=== PATIENT | female | born 1940 | race Caucasian/White ===

== ENCOUNTER → 2020-08-16 12:47 | Outpatient (CLI) | payer MEDICARE, SELFPAY ==
--- NOTE | 2020-08-16 13:03 | DI.CT.S_ITS ---
PROCEDURE: CT LUMBAR SPINE WO CON INDICATIONS: Radiculopathy, lumbar region TECHNIQUE: Noncontrast 3 mm thick sections acquired from the T12 level to the sacrum. Sagittal and coronal reformats were constructed. For radiation dose reduction, the following was used: automated exposure control. COMPARISON: None. FINDINGS: Image quality: Excellent. Bones: There is normal bony alignment. No acute vertebral body compression fractures. No suspicious lytic or blastic bony lesions. Central spinal caliber is of normal overall caliber. No pars defects. L1-L2: Mild degenerative disc height reduction, slight posterior disc bulge. No definite spinal or foraminal stenosis. L2-L3: Mild degenerative disc height reduction, no definite posterior disc bulging. Minimal facet degeneration, no definite spinal or foraminal stenosis. L3-L4: Minimal degenerative disc height reduction. There is left greater than right posterior disc bulging, in addition to mild facet osteoarthritis. This results in asymmetric foraminal stenosis, moderately severe on the left and [id number] on the right. The foraminal stenosis on the left is predominantly due to osseous hypertrophy. L4-L5: Mild degenerative disc height reduction. Moderate facet osteoarthritis that is symmetric bilaterally. This results in bilateral moderate foraminal stenosis and symmetric mild ligamentum flavum hypertrophy. Mild concentric spinal stenosis is present as a result. L5-S1: Mild degenerative disc height reduction, mild posterior disc bulging. Mild facet osteoarthritis, with symmetric mild foraminal stenosis. Soft tissues: No retroperitoneal masses or hematomas. Visualized aorta is normal in caliber. IMPRESSION: Trauma is not found. No subluxation is present. There is bivn-vu-yejkptum degenerative facet osteoarthritis and mild degenerative disc disease overall. Both asymmetric and symmetric foraminal stenosis is present as discussed in detail by level in the body of the report above. Mild concentric spinal stenosis is found also, without suspected disc herniation. Dictated by: Miguel Ángel Deleon M.D. on 08/16/2020 at 14:20 Approved by: Miguel Ángel Deleon M.D. on 08/16/2020 at 14:27
== END ==
PROVIDERS: Referring Provider Orthopaedic Surgery; Visit Provider Orthopaedic Surgery
DX: M51.16 Intervertebral disc disorders with radiculopathy, lumbar region (principal); M51.17 Intervertebral disc disorders with radiculopathy, lumbosacral region; M47.26 Other spondylosis with radiculopathy, lumbar region; M47.27 Other spondylosis with radiculopathy, lumbosacral region; M48.061 Spinal stenosis, lumbar region without neurogenic claudication; M48.07 Spinal stenosis, lumbosacral region
CPT/HCPCS: 72131

== ENCOUNTER → 2021-11-06 10:32 | Outpatient (CLI) | payer MEDICARE, SELFPAY | PROVIDERS: PCP Family Medicine; Referring Provider Radiology Radiation Oncology; Visit Provider Family Medicine | DX: L59.8 Other specified disorders of the skin and subcutaneous tissue related to radiation (principal); S81.802A Unspecified open wound, left lower leg, initial encounter; R60.0 Localized edema; Z85.828 Personal history of other malignant neoplasm of skin; Z92.3 Personal history of irradiation; Z74.09 Other reduced mobility | CPT/HCPCS: 97597; 99204; 99213 ==

== ENCOUNTER → 2021-11-13 09:13 | Outpatient (CLI) | payer MEDICARE, SELFPAY | PROVIDERS: PCP Family Medicine; Referring Provider Family Medicine; Visit Provider Family Medicine | DX: L59.8 Other specified disorders of the skin and subcutaneous tissue related to radiation (principal); S81.802A Unspecified open wound, left lower leg, initial encounter; R60.0 Localized edema; Z85.828 Personal history of other malignant neoplasm of skin; Z92.3 Personal history of irradiation; Z74.09 Other reduced mobility | CPT/HCPCS: 11042; 93923 ==

== ENCOUNTER → 2021-11-20 11:59 | Outpatient (CLI) | payer MEDICARE, SELFPAY | PROVIDERS: PCP Family Medicine; Referring Provider Dermatology MOHS-Micrographic Surgery; Visit Provider Family Medicine | DX: Z09 Encounter for follow-up examination after completed treatment for conditions other than malignant neoplasm (principal); Z92.3 Personal history of irradiation; Z87.2 Personal history of diseases of the skin and subcutaneous tissue | CPT/HCPCS: 99212; 99213 ==

== ENCOUNTER → 2021-12-25 11:52 | Outpatient (CLI) | payer MEDICARE, SELFPAY | PROVIDERS: PCP Family Medicine; Referring Provider Family Medicine; Visit Provider Family Medicine | DX: L59.8 Other specified disorders of the skin and subcutaneous tissue related to radiation (principal); I87.2 Venous insufficiency (chronic) (peripheral); L97.822 Non-pressure chronic ulcer of other part of left lower leg with fat layer exposed; L08.9 Local infection of the skin and subcutaneous tissue, unspecified; M79.662 Pain in left lower leg; R60.0 Localized edema; Z74.09 Other reduced mobility; Z85.828 Personal history of other malignant neoplasm of skin; Z92.3 Personal history of irradiation | CPT/HCPCS: 11042; 87070; 87075; 87077; 87186; 87205; 99213 ==

== ENCOUNTER → 2022-01-08 10:26 | Outpatient (CLI) | payer MEDICARE, SELFPAY | PROVIDERS: PCP Family Medicine; Referring Provider Family Medicine; Visit Provider Family Medicine | DX: L59.8 Other specified disorders of the skin and subcutaneous tissue related to radiation (principal); L97.822 Non-pressure chronic ulcer of other part of left lower leg with fat layer exposed; L08.89 Other specified local infections of the skin and subcutaneous tissue; B96.89 Other specified bacterial agents as the cause of diseases classified elsewhere; R60.0 Localized edema; R26.89 Other abnormalities of gait and mobility | CPT/HCPCS: 11042; 99214 ==

== ENCOUNTER → 2022-01-15 08:49 | Outpatient (CLI) | payer MEDICARE, SELFPAY | PROVIDERS: PCP Family Medicine; Referring Provider Family Medicine; Visit Provider Family Medicine | DX: I87.2 Venous insufficiency (chronic) (peripheral) (principal); L97.822 Non-pressure chronic ulcer of other part of left lower leg with fat layer exposed; L59.8 Other specified disorders of the skin and subcutaneous tissue related to radiation; L08.9 Local infection of the skin and subcutaneous tissue, unspecified; R60.0 Localized edema; Z74.09 Other reduced mobility; Z88.8 Allergy status to other drugs, medicaments and biological substances; Z85.828 Personal history of other malignant neoplasm of skin; Z92.3 Personal history of irradiation | CPT/HCPCS: 11042; 87070; 87075; 87205; 99213 ==

== ENCOUNTER → 2022-01-22 10:44 | Outpatient (CLI) | payer MEDICARE, SELFPAY | PROVIDERS: PCP Family Medicine; Referring Provider Family Medicine; Visit Provider Family Medicine | DX: I87.2 Venous insufficiency (chronic) (peripheral) (principal); L97.822 Non-pressure chronic ulcer of other part of left lower leg with fat layer exposed; R60.0 Localized edema | CPT/HCPCS: 99213 ==

== ENCOUNTER → 2022-02-06 08:28 | Outpatient (CLI) | payer MEDICARE, SELFPAY | PROVIDERS: PCP Family Medicine; Referring Provider Family Medicine; Visit Provider Family Medicine | DX: I87.2 Venous insufficiency (chronic) (peripheral) (principal); L97.822 Non-pressure chronic ulcer of other part of left lower leg with fat layer exposed; L59.8 Other specified disorders of the skin and subcutaneous tissue related to radiation; R60.0 Localized edema; M79.662 Pain in left lower leg; Z74.09 Other reduced mobility; Z92.3 Personal history of irradiation | CPT/HCPCS: 11042; 99213 ==

== ENCOUNTER → 2022-02-26 09:06 | Outpatient (CLI) | payer MEDICARE, SELFPAY | PROVIDERS: PCP Family Medicine; Referring Provider Family Medicine; Visit Provider Family Medicine | DX: I87.2 Venous insufficiency (chronic) (peripheral) (principal); L59.8 Other specified disorders of the skin and subcutaneous tissue related to radiation; L97.822 Non-pressure chronic ulcer of other part of left lower leg with fat layer exposed; M79.605 Pain in left leg; R60.0 Localized edema; L08.9 Local infection of the skin and subcutaneous tissue, unspecified; Z74.09 Other reduced mobility | CPT/HCPCS: 11042; 87070; 87075; 87077; 87147; 87205; 99213 ==

== ENCOUNTER → 2022-03-19 08:43 | Outpatient (CLI) | payer MEDICARE, SELFPAY | PROVIDERS: PCP Family Medicine; Referring Provider Family Medicine; Visit Provider Family Medicine | DX: I87.2 Venous insufficiency (chronic) (peripheral) (principal); L97.822 Non-pressure chronic ulcer of other part of left lower leg with fat layer exposed; L59.8 Other specified disorders of the skin and subcutaneous tissue related to radiation; B95.7 Other staphylococcus as the cause of diseases classified elsewhere; R60.0 Localized edema; L53.9 Erythematous condition, unspecified | CPT/HCPCS: 97597; 99212; 99214 ==

== ENCOUNTER → 2022-04-17 08:38 | Outpatient (CLI) | payer MEDICARE, SELFPAY | PROVIDERS: PCP Family Medicine; Referring Provider Family Medicine; Visit Provider Family Medicine | DX: Z01.818 Encounter for other preprocedural examination (principal); L59.8 Other specified disorders of the skin and subcutaneous tissue related to radiation; L97.822 Non-pressure chronic ulcer of other part of left lower leg with fat layer exposed; I10 Essential (primary) hypertension; M79.662 Pain in left lower leg | CPT/HCPCS: 11042; 71046; 99214 ==

== ENCOUNTER → 2022-04-17 09:52 | Outpatient (CLI) | payer MEDICARE, SELFPAY ==
--- NOTE | 2022-04-17 09:54 | DI.RAD.S_ITS ---
PROCEDURE: XR CHEST 2V INDICATIONS: evaluate prior to starting HBO TECHNIQUE: 2 views of the chest were acquired. COMPARISON: None. FINDINGS: Surgical changes and devices: None. Lungs and pleura: Lungs are clear. No pleural effusions or pneumothorax. Mediastinum: Mediastinal contours are normal. Heart size is normal. Bones and chest wall: No suspicious bony abnormalities. Soft tissues appear unremarkable. IMPRESSION: No acute cardiopulmonary disease. Dictated by: Alvino Mauro M.D. on 04/17/2022 at 16:52 Approved by: Alvino Mauro M.D. on 04/17/2022 at 16:52
== END ==
PROVIDERS: PCP Family Medicine; Referring Provider Family Medicine; Visit Provider Family Medicine
DX: Z01.818 Encounter for other preprocedural examination (principal)
CPT/HCPCS: 71046

== ENCOUNTER → 2022-05-17 08:59 | Outpatient (CLI) | payer MEDICARE, SELFPAY | PROVIDERS: PCP Family Medicine; Referring Provider Family Medicine; Visit Provider Family Medicine | DX: L59.8 Other specified disorders of the skin and subcutaneous tissue related to radiation (principal); L08.9 Local infection of the skin and subcutaneous tissue, unspecified; S81.802A Unspecified open wound, left lower leg, initial encounter | CPT/HCPCS: 11042; 87070; 87075; 87077; 87186; 87205; 99183; 99213; G0277 ==

== ENCOUNTER → 2022-05-18 09:55 | Outpatient (CLI) | payer MEDICARE, SELFPAY | PROVIDERS: PCP Family Medicine; Referring Provider Family Medicine; Visit Provider Nurse Practitioner Family | DX: L59.8 Other specified disorders of the skin and subcutaneous tissue related to radiation (principal); L97.822 Non-pressure chronic ulcer of other part of left lower leg with fat layer exposed; L08.9 Local infection of the skin and subcutaneous tissue, unspecified | CPT/HCPCS: 99183; G0277 ==

== ENCOUNTER → 2022-05-21 09:32 | Outpatient (CLI) | payer MEDICARE, SELFPAY | PROVIDERS: PCP Family Medicine; Referring Provider Family Medicine; Visit Provider Family Medicine | DX: L59.8 Other specified disorders of the skin and subcutaneous tissue related to radiation (principal); L97.822 Non-pressure chronic ulcer of other part of left lower leg with fat layer exposed; L08.9 Local infection of the skin and subcutaneous tissue, unspecified | CPT/HCPCS: 99183; G0277 ==

== ENCOUNTER → 2022-05-22 09:57 | Outpatient (CLI) | payer MEDICARE, SELFPAY | PROVIDERS: PCP Family Medicine; Referring Provider Family Medicine; Visit Provider Family Medicine | DX: L59.8 Other specified disorders of the skin and subcutaneous tissue related to radiation (principal); L97.822 Non-pressure chronic ulcer of other part of left lower leg with fat layer exposed; L08.9 Local infection of the skin and subcutaneous tissue, unspecified | CPT/HCPCS: 99183; G0277 ==

== ENCOUNTER → 2022-05-23 09:01 | Outpatient (CLI) | payer MEDICARE, SELFPAY | PROVIDERS: PCP Family Medicine; Referring Provider Family Medicine; Visit Provider Family Medicine | DX: L59.8 Other specified disorders of the skin and subcutaneous tissue related to radiation (principal); L97.822 Non-pressure chronic ulcer of other part of left lower leg with fat layer exposed; L08.9 Local infection of the skin and subcutaneous tissue, unspecified | CPT/HCPCS: 99183; G0277 ==

== ENCOUNTER → 2022-05-24 09:41 | Outpatient (CLI) | payer MEDICARE, SELFPAY | PROVIDERS: PCP Family Medicine; Referring Provider Family Medicine; Visit Provider Family Medicine | DX: L59.8 Other specified disorders of the skin and subcutaneous tissue related to radiation (principal); L97.822 Non-pressure chronic ulcer of other part of left lower leg with fat layer exposed; L08.9 Local infection of the skin and subcutaneous tissue, unspecified | CPT/HCPCS: 99183; G0277 ==

== ENCOUNTER → 2022-05-25 09:14 | Outpatient (CLI) | payer MEDICARE, SELFPAY | PROVIDERS: PCP Family Medicine; Referring Provider Family Medicine; Visit Provider Nurse Practitioner Family | DX: L59.8 Other specified disorders of the skin and subcutaneous tissue related to radiation (principal); L97.822 Non-pressure chronic ulcer of other part of left lower leg with fat layer exposed; L08.9 Local infection of the skin and subcutaneous tissue, unspecified | CPT/HCPCS: 99183; G0277 ==

== ENCOUNTER → 2022-05-28 09:06 | Outpatient (CLI) | payer MEDICARE, SELFPAY | PROVIDERS: PCP Family Medicine; Referring Provider Family Medicine; Visit Provider Family Medicine | DX: L59.8 Other specified disorders of the skin and subcutaneous tissue related to radiation (principal); L97.822 Non-pressure chronic ulcer of other part of left lower leg with fat layer exposed; L08.9 Local infection of the skin and subcutaneous tissue, unspecified | CPT/HCPCS: 99183; G0277 ==

== ENCOUNTER → 2022-05-29 08:59 | Outpatient (CLI) | payer MEDICARE, SELFPAY | PROVIDERS: PCP Family Medicine; Referring Provider Family Medicine; Visit Provider Family Medicine | DX: L59.8 Other specified disorders of the skin and subcutaneous tissue related to radiation (principal); L97.822 Non-pressure chronic ulcer of other part of left lower leg with fat layer exposed; L08.9 Local infection of the skin and subcutaneous tissue, unspecified | CPT/HCPCS: 99183; G0277 ==

== ENCOUNTER → 2022-05-30 09:49 | Outpatient (CLI) | payer MEDICARE, SELFPAY | PROVIDERS: PCP Family Medicine; Referring Provider Family Medicine; Visit Provider Family Medicine | DX: L59.8 Other specified disorders of the skin and subcutaneous tissue related to radiation (principal); L97.822 Non-pressure chronic ulcer of other part of left lower leg with fat layer exposed; L08.9 Local infection of the skin and subcutaneous tissue, unspecified; B95.7 Other staphylococcus as the cause of diseases classified elsewhere | CPT/HCPCS: 11042; 99183; 99213; G0277 ==

== ENCOUNTER → 2022-05-31 09:05 | Outpatient (CLI) | payer MEDICARE, SELFPAY | PROVIDERS: PCP Family Medicine; Referring Provider Radiology Radiation Oncology; Visit Provider Family Medicine | DX: L59.8 Other specified disorders of the skin and subcutaneous tissue related to radiation (principal); L97.822 Non-pressure chronic ulcer of other part of left lower leg with fat layer exposed; L08.9 Local infection of the skin and subcutaneous tissue, unspecified; B95.7 Other staphylococcus as the cause of diseases classified elsewhere | CPT/HCPCS: 99183; G0277 ==

== ENCOUNTER → 2022-06-01 14:56 | Outpatient (CLI) | payer MEDICARE, SELFPAY | PROVIDERS: PCP Family Medicine; Referring Provider Family Medicine; Visit Provider Nurse Practitioner Family | DX: L59.8 Other specified disorders of the skin and subcutaneous tissue related to radiation (principal); L97.822 Non-pressure chronic ulcer of other part of left lower leg with fat layer exposed; L08.9 Local infection of the skin and subcutaneous tissue, unspecified; B95.7 Other staphylococcus as the cause of diseases classified elsewhere | CPT/HCPCS: 99183; G0277 ==

== ENCOUNTER → 2022-06-04 08:48 | Outpatient (CLI) | payer MEDICARE, SELFPAY | PROVIDERS: PCP Family Medicine; Referring Provider Radiology Radiation Oncology; Visit Provider Family Medicine | DX: L59.8 Other specified disorders of the skin and subcutaneous tissue related to radiation (principal); L97.822 Non-pressure chronic ulcer of other part of left lower leg with fat layer exposed; L08.9 Local infection of the skin and subcutaneous tissue, unspecified; B95.7 Other staphylococcus as the cause of diseases classified elsewhere | CPT/HCPCS: 99183; G0277 ==

== ENCOUNTER → 2022-06-05 08:35 | Outpatient (CLI) | payer MEDICARE, SELFPAY | PROVIDERS: PCP Family Medicine; Referring Provider Radiology Radiation Oncology; Visit Provider Family Medicine | DX: L59.8 Other specified disorders of the skin and subcutaneous tissue related to radiation (principal); L97.822 Non-pressure chronic ulcer of other part of left lower leg with fat layer exposed; L08.9 Local infection of the skin and subcutaneous tissue, unspecified; B95.7 Other staphylococcus as the cause of diseases classified elsewhere | CPT/HCPCS: 99183; G0277 ==

== ENCOUNTER → 2022-06-06 08:59 | Outpatient (CLI) | payer MEDICARE, SELFPAY | PROVIDERS: PCP Family Medicine; Referring Provider Family Medicine; Visit Provider Family Medicine | DX: L59.8 Other specified disorders of the skin and subcutaneous tissue related to radiation (principal); L97.822 Non-pressure chronic ulcer of other part of left lower leg with fat layer exposed; L08.9 Local infection of the skin and subcutaneous tissue, unspecified; B95.7 Other staphylococcus as the cause of diseases classified elsewhere | CPT/HCPCS: 99183; G0277 ==

== ENCOUNTER → 2022-06-07 08:41 | Outpatient (CLI) | payer MEDICARE, SELFPAY | PROVIDERS: PCP Family Medicine; Referring Provider Radiology Radiation Oncology; Visit Provider Family Medicine | DX: L59.8 Other specified disorders of the skin and subcutaneous tissue related to radiation (principal); L97.822 Non-pressure chronic ulcer of other part of left lower leg with fat layer exposed; L08.9 Local infection of the skin and subcutaneous tissue, unspecified; B95.7 Other staphylococcus as the cause of diseases classified elsewhere | CPT/HCPCS: 99183; G0277 ==

== ENCOUNTER → 2022-06-11 08:56 | Outpatient (CLI) | payer MEDICARE, SELFPAY | PROVIDERS: PCP Family Medicine; Referring Provider Family Medicine; Visit Provider Family Medicine | DX: L59.8 Other specified disorders of the skin and subcutaneous tissue related to radiation (principal); L97.822 Non-pressure chronic ulcer of other part of left lower leg with fat layer exposed; L08.9 Local infection of the skin and subcutaneous tissue, unspecified; B95.7 Other staphylococcus as the cause of diseases classified elsewhere | CPT/HCPCS: 99183; G0277 ==

== ENCOUNTER → 2022-06-12 08:38 | Outpatient (CLI) | payer MEDICARE, SELFPAY | PROVIDERS: PCP Family Medicine; Referring Provider Radiology Radiation Oncology; Visit Provider Family Medicine | DX: L59.8 Other specified disorders of the skin and subcutaneous tissue related to radiation (principal); L97.822 Non-pressure chronic ulcer of other part of left lower leg with fat layer exposed; L08.9 Local infection of the skin and subcutaneous tissue, unspecified; B95.7 Other staphylococcus as the cause of diseases classified elsewhere | CPT/HCPCS: 99183; G0277 ==

== ENCOUNTER → 2022-06-13 09:52 | Outpatient (CLI) | payer MEDICARE, SELFPAY | PROVIDERS: PCP Family Medicine; Referring Provider Family Medicine; Visit Provider Family Medicine | DX: L59.8 Other specified disorders of the skin and subcutaneous tissue related to radiation (principal); L97.822 Non-pressure chronic ulcer of other part of left lower leg with fat layer exposed; L08.9 Local infection of the skin and subcutaneous tissue, unspecified; B95.7 Other staphylococcus as the cause of diseases classified elsewhere | CPT/HCPCS: 99183; G0277 ==

== ENCOUNTER → 2022-06-14 08:31 | Outpatient (CLI) | payer MEDICARE, SELFPAY | PROVIDERS: PCP Family Medicine; Referring Provider Radiology Radiation Oncology; Visit Provider Family Medicine | DX: L59.8 Other specified disorders of the skin and subcutaneous tissue related to radiation (principal); S81.802A Unspecified open wound, left lower leg, initial encounter; R60.0 Localized edema; L97.822 Non-pressure chronic ulcer of other part of left lower leg with fat layer exposed; L08.9 Local infection of the skin and subcutaneous tissue, unspecified; B95.7 Other staphylococcus as the cause of diseases classified elsewhere | CPT/HCPCS: 11042; 99183; 99213; G0277 ==

== ENCOUNTER → 2022-06-18 08:59 | Outpatient (CLI) | payer MEDICARE, SELFPAY | PROVIDERS: PCP Family Medicine; Referring Provider Radiology Radiation Oncology; Visit Provider Family Medicine | DX: L59.8 Other specified disorders of the skin and subcutaneous tissue related to radiation (principal); L97.822 Non-pressure chronic ulcer of other part of left lower leg with fat layer exposed | CPT/HCPCS: 99183; G0277 ==

== ENCOUNTER → 2022-06-19 08:35 | Outpatient (CLI) | payer MEDICARE, SELFPAY | PROVIDERS: PCP Family Medicine; Referring Provider Radiology Radiation Oncology; Visit Provider Family Medicine | DX: L59.8 Other specified disorders of the skin and subcutaneous tissue related to radiation (principal); L97.822 Non-pressure chronic ulcer of other part of left lower leg with fat layer exposed | CPT/HCPCS: 99183; G0277 ==

== ENCOUNTER → 2022-06-20 09:04 | Outpatient (CLI) | payer MEDICARE, SELFPAY | PROVIDERS: PCP Family Medicine; Referring Provider Family Medicine; Visit Provider Surgery | DX: L59.8 Other specified disorders of the skin and subcutaneous tissue related to radiation (principal); L97.822 Non-pressure chronic ulcer of other part of left lower leg with fat layer exposed | CPT/HCPCS: 99183; G0277 ==

== ENCOUNTER → 2022-06-21 08:43 | Outpatient (CLI) | payer MEDICARE, SELFPAY | PROVIDERS: PCP Family Medicine; Referring Provider Radiology Radiation Oncology; Visit Provider Family Medicine | DX: L59.8 Other specified disorders of the skin and subcutaneous tissue related to radiation (principal); L97.822 Non-pressure chronic ulcer of other part of left lower leg with fat layer exposed | CPT/HCPCS: 99183; G0277 ==

== ENCOUNTER → 2022-06-22 09:03 | Outpatient (CLI) | payer MEDICARE, SELFPAY | PROVIDERS: PCP Family Medicine; Referring Provider Family Medicine; Visit Provider Nurse Practitioner Family | DX: L59.8 Other specified disorders of the skin and subcutaneous tissue related to radiation (principal); L97.822 Non-pressure chronic ulcer of other part of left lower leg with fat layer exposed | CPT/HCPCS: 99183; G0277 ==

== ENCOUNTER → 2022-06-25 09:03 | Outpatient (CLI) | payer MEDICARE, SELFPAY | PROVIDERS: PCP Family Medicine; Referring Provider Family Medicine; Visit Provider Family Medicine | DX: L59.8 Other specified disorders of the skin and subcutaneous tissue related to radiation (principal); L97.822 Non-pressure chronic ulcer of other part of left lower leg with fat layer exposed | CPT/HCPCS: 99183; G0277 ==

== ENCOUNTER → 2022-06-26 10:34 | Outpatient (CLI) | payer MEDICARE, SELFPAY | PROVIDERS: PCP Family Medicine; Referring Provider Family Medicine; Visit Provider Surgery | DX: L59.8 Other specified disorders of the skin and subcutaneous tissue related to radiation (principal); L97.822 Non-pressure chronic ulcer of other part of left lower leg with fat layer exposed | CPT/HCPCS: 99183; G0277 ==

== ENCOUNTER → 2022-06-27 10:15 | Outpatient (CLI) | payer MEDICARE, SELFPAY | PROVIDERS: PCP Family Medicine; Referring Provider Family Medicine; Visit Provider Surgery | DX: L59.8 Other specified disorders of the skin and subcutaneous tissue related to radiation (principal); L97.822 Non-pressure chronic ulcer of other part of left lower leg with fat layer exposed | CPT/HCPCS: 99183; G0277 ==

== ENCOUNTER → 2022-07-02 08:52 | Outpatient (CLI) | payer MEDICARE, SELFPAY | PROVIDERS: PCP Family Medicine; Referring Provider Radiology Radiation Oncology; Visit Provider Surgery | DX: L59.8 Other specified disorders of the skin and subcutaneous tissue related to radiation (principal); L97.822 Non-pressure chronic ulcer of other part of left lower leg with fat layer exposed | CPT/HCPCS: 99183; G0277 ==

== ENCOUNTER → 2022-07-03 08:35 | Outpatient (CLI) | payer MEDICARE, SELFPAY | PROVIDERS: PCP Family Medicine; Referring Provider Radiology Radiation Oncology; Visit Provider Surgery | DX: L59.8 Other specified disorders of the skin and subcutaneous tissue related to radiation (principal); L97.822 Non-pressure chronic ulcer of other part of left lower leg with fat layer exposed | CPT/HCPCS: 11042; 99183; G0277 ==

== ENCOUNTER → 2022-07-09 08:37 | Outpatient (CLI) | payer MEDICARE, SELFPAY | PROVIDERS: PCP Family Medicine; Referring Provider Radiology Radiation Oncology; Visit Provider Surgery | DX: L59.8 Other specified disorders of the skin and subcutaneous tissue related to radiation (principal); L97.822 Non-pressure chronic ulcer of other part of left lower leg with fat layer exposed | CPT/HCPCS: 99183; G0277 ==

== ENCOUNTER → 2022-07-10 08:58 | Outpatient (CLI) | payer MEDICARE, SELFPAY | PROVIDERS: PCP Family Medicine; Referring Provider Radiology Radiation Oncology; Visit Provider Surgery | DX: L59.8 Other specified disorders of the skin and subcutaneous tissue related to radiation (principal); L97.822 Non-pressure chronic ulcer of other part of left lower leg with fat layer exposed | CPT/HCPCS: 99183; G0277 ==

== ENCOUNTER → 2022-07-11 09:41 | Outpatient (CLI) | payer MEDICARE, SELFPAY | PROVIDERS: PCP Family Medicine; Referring Provider Family Medicine; Visit Provider Surgery | DX: L59.8 Other specified disorders of the skin and subcutaneous tissue related to radiation (principal); L97.822 Non-pressure chronic ulcer of other part of left lower leg with fat layer exposed | CPT/HCPCS: 99183; G0277 ==

== ENCOUNTER → 2022-07-12 08:32 | Outpatient (CLI) | payer MEDICARE, SELFPAY | PROVIDERS: PCP Family Medicine; Referring Provider Radiology Radiation Oncology; Visit Provider Surgery | DX: L59.8 Other specified disorders of the skin and subcutaneous tissue related to radiation (principal); L97.822 Non-pressure chronic ulcer of other part of left lower leg with fat layer exposed | CPT/HCPCS: 99183; G0277 ==

== ENCOUNTER → 2022-07-13 08:20 | Outpatient (CLI) | payer MEDICARE, SELFPAY | PROVIDERS: PCP Family Medicine; Referring Provider Family Medicine; Visit Provider Nurse Practitioner Family | DX: L59.8 Other specified disorders of the skin and subcutaneous tissue related to radiation (principal); L97.822 Non-pressure chronic ulcer of other part of left lower leg with fat layer exposed | CPT/HCPCS: 99183; G0277 ==

== ENCOUNTER → 2022-07-16 08:43 | Outpatient (CLI) | payer MEDICARE, SELFPAY | PROVIDERS: PCP Family Medicine; Referring Provider Radiology Radiation Oncology; Visit Provider Surgery | DX: L59.8 Other specified disorders of the skin and subcutaneous tissue related to radiation (principal); L97.822 Non-pressure chronic ulcer of other part of left lower leg with fat layer exposed | CPT/HCPCS: 99183; G0277 ==

== ENCOUNTER → 2022-07-17 08:43 | Outpatient (CLI) | payer MEDICARE, SELFPAY | PROVIDERS: PCP Family Medicine; Referring Provider Radiology Radiation Oncology; Visit Provider Surgery | DX: L59.8 Other specified disorders of the skin and subcutaneous tissue related to radiation (principal); L97.822 Non-pressure chronic ulcer of other part of left lower leg with fat layer exposed | CPT/HCPCS: 99183; G0277 ==

== ENCOUNTER → 2022-07-18 11:43 | Outpatient (CLI) | payer MEDICARE, SELFPAY | PROVIDERS: PCP Family Medicine; Referring Provider Family Medicine; Visit Provider Surgery | DX: L59.8 Other specified disorders of the skin and subcutaneous tissue related to radiation (principal); L97.822 Non-pressure chronic ulcer of other part of left lower leg with fat layer exposed | CPT/HCPCS: 99183; G0277 ==

== ENCOUNTER → 2022-07-19 09:18 | Outpatient (CLI) | payer MEDICARE, SELFPAY | PROVIDERS: PCP Family Medicine; Referring Provider Family Medicine; Visit Provider Surgery | DX: L59.8 Other specified disorders of the skin and subcutaneous tissue related to radiation (principal); S81.802A Unspecified open wound, left lower leg, initial encounter; R60.0 Localized edema; L58.9 Radiodermatitis, unspecified; L97.822 Non-pressure chronic ulcer of other part of left lower leg with fat layer exposed | CPT/HCPCS: 11043; 99183; 99213; G0277 ==

== ENCOUNTER → 2022-07-20 08:55 | Outpatient (CLI) | payer MEDICARE, SELFPAY | PROVIDERS: PCP Family Medicine; Referring Provider Family Medicine; Visit Provider Nurse Practitioner Family | DX: L59.8 Other specified disorders of the skin and subcutaneous tissue related to radiation (principal); L97.822 Non-pressure chronic ulcer of other part of left lower leg with fat layer exposed | CPT/HCPCS: 99183; G0277 ==

== ENCOUNTER → 2022-07-23 08:33 | Outpatient (CLI) | payer MEDICARE, SELFPAY | PROVIDERS: PCP Family Medicine; Referring Provider Radiology Radiation Oncology; Visit Provider Surgery | DX: L59.8 Other specified disorders of the skin and subcutaneous tissue related to radiation (principal); L97.822 Non-pressure chronic ulcer of other part of left lower leg with fat layer exposed | CPT/HCPCS: 99183; G0277 ==

== ENCOUNTER → 2022-07-24 10:39 | Outpatient (CLI) | payer MEDICARE, SELFPAY | PROVIDERS: PCP Family Medicine; Referring Provider Family Medicine; Visit Provider Surgery | DX: L59.8 Other specified disorders of the skin and subcutaneous tissue related to radiation (principal); L97.822 Non-pressure chronic ulcer of other part of left lower leg with fat layer exposed; L08.9 Local infection of the skin and subcutaneous tissue, unspecified | CPT/HCPCS: 99183; G0277 ==

== ENCOUNTER → 2022-07-25 10:05 | Outpatient (CLI) | payer MEDICARE, SELFPAY | PROVIDERS: PCP Family Medicine; Referring Provider Family Medicine; Visit Provider Surgery | DX: L59.8 Other specified disorders of the skin and subcutaneous tissue related to radiation (principal); L97.822 Non-pressure chronic ulcer of other part of left lower leg with fat layer exposed | CPT/HCPCS: 99183; G0277 ==

== ENCOUNTER → 2022-08-01 09:32 | Outpatient (CLI) | payer MEDICARE, SELFPAY | PROVIDERS: PCP Family Medicine; Referring Provider Family Medicine; Visit Provider Surgery | DX: L59.8 Other specified disorders of the skin and subcutaneous tissue related to radiation (principal); L97.822 Non-pressure chronic ulcer of other part of left lower leg with fat layer exposed | CPT/HCPCS: 99183; G0277 ==

== ENCOUNTER → 2022-08-02 10:28 | Outpatient (CLI) | payer MEDICARE, SELFPAY | PROVIDERS: PCP Family Medicine; Referring Provider Family Medicine; Visit Provider Surgery | DX: L59.8 Other specified disorders of the skin and subcutaneous tissue related to radiation (principal); S81.802A Unspecified open wound, left lower leg, initial encounter | CPT/HCPCS: 97597; 99183; G0277 ==

== ENCOUNTER → 2022-08-07 08:36 | Outpatient (CLI) | payer MEDICARE, SELFPAY | PROVIDERS: PCP Family Medicine; Referring Provider Radiology Radiation Oncology; Visit Provider Surgery | DX: L59.8 Other specified disorders of the skin and subcutaneous tissue related to radiation (principal); L97.822 Non-pressure chronic ulcer of other part of left lower leg with fat layer exposed | CPT/HCPCS: 99183; G0277 ==

== ENCOUNTER → 2022-08-09 08:52 | Outpatient (CLI) | payer MEDICARE, SELFPAY | PROVIDERS: PCP Family Medicine; Referring Provider Radiology Radiation Oncology; Visit Provider Surgery | DX: L59.8 Other specified disorders of the skin and subcutaneous tissue related to radiation (principal); L97.822 Non-pressure chronic ulcer of other part of left lower leg with fat layer exposed | CPT/HCPCS: 99183; G0277 ==

== ENCOUNTER → 2022-08-10 09:48 | Outpatient (CLI) | payer MEDICARE, SELFPAY | PROVIDERS: PCP Family Medicine; Referring Provider Family Medicine; Visit Provider Nurse Practitioner Family | DX: L59.8 Other specified disorders of the skin and subcutaneous tissue related to radiation (principal); L97.822 Non-pressure chronic ulcer of other part of left lower leg with fat layer exposed | CPT/HCPCS: 99183; G0277 ==

== ENCOUNTER → 2022-08-13 08:34 | Outpatient (CLI) | payer MEDICARE, SELFPAY | PROVIDERS: PCP Family Medicine; Referring Provider Radiology Radiation Oncology; Visit Provider Surgery | DX: L59.8 Other specified disorders of the skin and subcutaneous tissue related to radiation (principal); L97.822 Non-pressure chronic ulcer of other part of left lower leg with fat layer exposed | CPT/HCPCS: 97597; 99183; 99211; 99213; G0277 ==

== ENCOUNTER → 2022-08-15 09:44 | Outpatient (CLI) | payer MEDICARE, SELFPAY | PROVIDERS: PCP Family Medicine; Referring Provider Family Medicine; Visit Provider Surgery | DX: L59.8 Other specified disorders of the skin and subcutaneous tissue related to radiation (principal); L97.822 Non-pressure chronic ulcer of other part of left lower leg with fat layer exposed | CPT/HCPCS: 99183; G0277 ==

== ENCOUNTER → 2022-08-16 08:37 | Outpatient (CLI) | payer MEDICARE, SELFPAY | PROVIDERS: PCP Family Medicine; Referring Provider Radiology Radiation Oncology; Visit Provider Surgery | DX: L59.8 Other specified disorders of the skin and subcutaneous tissue related to radiation (principal); L97.822 Non-pressure chronic ulcer of other part of left lower leg with fat layer exposed | CPT/HCPCS: 99183; G0277 ==

== ENCOUNTER → 2022-08-20 08:42 | Outpatient (CLI) | payer MEDICARE, SELFPAY | PROVIDERS: PCP Family Medicine; Referring Provider Radiology Radiation Oncology; Visit Provider Surgery | DX: L59.8 Other specified disorders of the skin and subcutaneous tissue related to radiation (principal); L97.822 Non-pressure chronic ulcer of other part of left lower leg with fat layer exposed | CPT/HCPCS: 99183; G0277 ==

== ENCOUNTER → 2022-08-21 08:36 | Outpatient (CLI) | payer MEDICARE, SELFPAY | PROVIDERS: PCP Family Medicine; Referring Provider Radiology Radiation Oncology; Visit Provider Surgery | DX: L59.8 Other specified disorders of the skin and subcutaneous tissue related to radiation (principal); L97.822 Non-pressure chronic ulcer of other part of left lower leg with fat layer exposed | CPT/HCPCS: 99183; G0277 ==

== ENCOUNTER → 2022-08-22 09:38 | Outpatient (CLI) | payer MEDICARE, SELFPAY | PROVIDERS: PCP Family Medicine; Referring Provider Family Medicine; Visit Provider Surgery | DX: L59.8 Other specified disorders of the skin and subcutaneous tissue related to radiation (principal); L97.822 Non-pressure chronic ulcer of other part of left lower leg with fat layer exposed | CPT/HCPCS: 99183; G0277 ==

== ENCOUNTER → 2022-08-23 08:47 | Outpatient (CLI) | payer MEDICARE, SELFPAY | PROVIDERS: PCP Family Medicine; Referring Provider Radiology Radiation Oncology; Visit Provider Surgery | DX: L59.8 Other specified disorders of the skin and subcutaneous tissue related to radiation (principal); L97.822 Non-pressure chronic ulcer of other part of left lower leg with fat layer exposed | CPT/HCPCS: 99183; G0277 ==

== ENCOUNTER → 2022-08-24 13:13 | Outpatient (CLI) | payer MEDICARE, SELFPAY | PROVIDERS: PCP Family Medicine; Referring Provider Family Medicine; Visit Provider Nurse Practitioner Family | DX: L59.8 Other specified disorders of the skin and subcutaneous tissue related to radiation (principal); L97.822 Non-pressure chronic ulcer of other part of left lower leg with fat layer exposed | CPT/HCPCS: 99183; G0277 ==

== ENCOUNTER → 2022-08-27 10:04 | Outpatient (CLI) | payer MEDICARE, SELFPAY | PROVIDERS: PCP Family Medicine; Referring Provider Family Medicine; Visit Provider Surgery | DX: L59.8 Other specified disorders of the skin and subcutaneous tissue related to radiation (principal); L97.822 Non-pressure chronic ulcer of other part of left lower leg with fat layer exposed | CPT/HCPCS: 99183; G0277 ==

== ENCOUNTER → 2022-08-28 11:06 | Outpatient (CLI) | payer MEDICARE, SELFPAY | PROVIDERS: PCP Family Medicine; Referring Provider Family Medicine; Visit Provider Surgery | DX: L59.8 Other specified disorders of the skin and subcutaneous tissue related to radiation (principal); L97.822 Non-pressure chronic ulcer of other part of left lower leg with fat layer exposed | CPT/HCPCS: 99183; G0277 ==

== ENCOUNTER → 2022-08-29 09:59 | Outpatient (CLI) | payer MEDICARE, SELFPAY | PROVIDERS: PCP Family Medicine; Referring Provider Family Medicine; Visit Provider Surgery | DX: L59.8 Other specified disorders of the skin and subcutaneous tissue related to radiation (principal); S81.802A Unspecified open wound, left lower leg, initial encounter; Z85.828 Personal history of other malignant neoplasm of skin | CPT/HCPCS: 11042; 99183; 99212; 99213; G0277 ==

== ENCOUNTER → 2022-09-13 11:20 | Outpatient (CLI) | payer MEDICARE, SELFPAY | PROVIDERS: PCP Family Medicine; Referring Provider Family Medicine; Visit Provider Surgery | DX: L59.8 Other specified disorders of the skin and subcutaneous tissue related to radiation (principal); S81.802A Unspecified open wound, left lower leg, initial encounter; M79.605 Pain in left leg; L30.9 Dermatitis, unspecified | CPT/HCPCS: 15275; Q4133 ==

== ENCOUNTER → 2022-09-20 09:53 | Outpatient (CLI) | payer MEDICARE, SELFPAY | PROVIDERS: PCP Family Medicine; Referring Provider Family Medicine; Visit Provider Surgery | DX: L59.8 Other specified disorders of the skin and subcutaneous tissue related to radiation (principal); S81.802A Unspecified open wound, left lower leg, initial encounter | CPT/HCPCS: 15271; Q4133 ==

== ENCOUNTER → 2022-09-27 14:34 | Outpatient (CLI) | payer MEDICARE, SELFPAY | PROVIDERS: PCP Family Medicine; Referring Provider Family Medicine; Visit Provider Surgery | DX: L59.8 Other specified disorders of the skin and subcutaneous tissue related to radiation (principal); L97.822 Non-pressure chronic ulcer of other part of left lower leg with fat layer exposed | CPT/HCPCS: 15271; 99213; Q4133 ==

== ENCOUNTER → 2022-10-03 08:32 | Outpatient (CLI) | payer MEDICARE, SELFPAY | PROVIDERS: PCP Family Medicine; Referring Provider Radiology Radiation Oncology; Visit Provider Surgery | DX: L59.8 Other specified disorders of the skin and subcutaneous tissue related to radiation (principal); S81.802A Unspecified open wound, left lower leg, initial encounter | CPT/HCPCS: 15271; Q4133 ==

== ENCOUNTER → 2022-10-10 08:53 | Outpatient (CLI) | payer MEDICARE, SELFPAY | PROVIDERS: PCP Family Medicine; Referring Provider Family Medicine; Visit Provider Surgery | DX: L97.822 Non-pressure chronic ulcer of other part of left lower leg with fat layer exposed (principal); L59.8 Other specified disorders of the skin and subcutaneous tissue related to radiation; R60.0 Localized edema; L53.9 Erythematous condition, unspecified; R21 Rash and other nonspecific skin eruption; Z92.3 Personal history of irradiation | CPT/HCPCS: 97597 ==

== ENCOUNTER → 2022-10-17 08:34 | Outpatient (CLI) | payer MEDICARE, SELFPAY | PROVIDERS: PCP Family Medicine; Referring Provider Radiology Radiation Oncology; Visit Provider Surgery | DX: L59.8 Other specified disorders of the skin and subcutaneous tissue related to radiation (principal); S81.802A Unspecified open wound, left lower leg, initial encounter | CPT/HCPCS: 15271; Q4133 ==

== ENCOUNTER → 2022-10-24 08:45 | Outpatient (CLI) | payer MEDICARE, SELFPAY | PROVIDERS: PCP Family Medicine; Referring Provider Radiology Radiation Oncology; Visit Provider Surgery | DX: L59.8 Other specified disorders of the skin and subcutaneous tissue related to radiation (principal); S81.802A Unspecified open wound, left lower leg, initial encounter; R60.0 Localized edema; R21 Rash and other nonspecific skin eruption | CPT/HCPCS: 15271; Q4133 ==

== ENCOUNTER → 2022-10-31 08:27 | Outpatient (CLI) | payer MEDICARE, SELFPAY | PROVIDERS: PCP Family Medicine; Referring Provider Radiology Radiation Oncology; Visit Provider Surgery | DX: L59.8 Other specified disorders of the skin and subcutaneous tissue related to radiation (principal); L97.822 Non-pressure chronic ulcer of other part of left lower leg with fat layer exposed; I87.2 Venous insufficiency (chronic) (peripheral); M79.605 Pain in left leg | CPT/HCPCS: 15271; 99213; Q4133 ==

== ENCOUNTER → 2022-11-14 13:00 | Outpatient (CLI) | payer MEDICARE, SELFPAY | PROVIDERS: PCP Family Medicine; Referring Provider Family Medicine; Visit Provider Surgery | DX: L59.8 Other specified disorders of the skin and subcutaneous tissue related to radiation (principal); L97.822 Non-pressure chronic ulcer of other part of left lower leg with fat layer exposed; R60.0 Localized edema; L53.9 Erythematous condition, unspecified | CPT/HCPCS: 15271; 99212; Q4101 ==

== ENCOUNTER → 2022-11-21 08:50 | Outpatient (CLI) | payer MEDICARE, SELFPAY | PROVIDERS: PCP Family Medicine; Referring Provider Family Medicine; Visit Provider Surgery | DX: L59.8 Other specified disorders of the skin and subcutaneous tissue related to radiation (principal); L97.822 Non-pressure chronic ulcer of other part of left lower leg with fat layer exposed; R60.0 Localized edema; L53.9 Erythematous condition, unspecified | CPT/HCPCS: 15271; Q4101 ==

== ENCOUNTER → 2022-11-29 09:00 | Outpatient (CLI) | payer MEDICARE, SELFPAY | PROVIDERS: PCP Family Medicine; Referring Provider Radiology Radiation Oncology; Visit Provider Surgery | DX: L59.8 Other specified disorders of the skin and subcutaneous tissue related to radiation (principal); S81.802A Unspecified open wound, left lower leg, initial encounter; R60.0 Localized edema; L53.9 Erythematous condition, unspecified | CPT/HCPCS: 15271; Q4101 ==

== ENCOUNTER → 2022-12-05 09:05 | Outpatient (CLI) | payer MEDICARE, SELFPAY | PROVIDERS: PCP Family Medicine; Referring Provider Radiology Radiation Oncology; Visit Provider Surgery | DX: L59.8 Other specified disorders of the skin and subcutaneous tissue related to radiation (principal); S81.802A Unspecified open wound, left lower leg, initial encounter; R60.0 Localized edema; L53.9 Erythematous condition, unspecified | CPT/HCPCS: 15271; Q4101 ==

== ENCOUNTER → 2022-12-12 08:37 | Outpatient (CLI) | payer MEDICARE, SELFPAY | PROVIDERS: PCP Family Medicine; Referring Provider Radiology Radiation Oncology; Visit Provider Surgery | DX: L59.8 Other specified disorders of the skin and subcutaneous tissue related to radiation (principal); L97.822 Non-pressure chronic ulcer of other part of left lower leg with fat layer exposed; R60.0 Localized edema; L53.9 Erythematous condition, unspecified; M79.605 Pain in left leg | CPT/HCPCS: 15271; Q4101 ==

== ENCOUNTER → 2022-12-19 10:49 | Outpatient (CLI) | payer MEDICARE, SELFPAY | PROVIDERS: PCP Family Medicine; Referring Provider Family Medicine; Visit Provider Surgery | DX: L59.8 Other specified disorders of the skin and subcutaneous tissue related to radiation (principal); S81.802A Unspecified open wound, left lower leg, initial encounter; R60.0 Localized edema | CPT/HCPCS: 11042 ==

== ENCOUNTER → 2022-12-26 08:51 | Outpatient (CLI) | payer MEDICARE, SELFPAY | PROVIDERS: PCP Family Medicine; Referring Provider Radiology Radiation Oncology; Visit Provider Surgery | DX: L59.8 Other specified disorders of the skin and subcutaneous tissue related to radiation (principal); I87.2 Venous insufficiency (chronic) (peripheral); I10 Essential (primary) hypertension; R60.0 Localized edema; L97.822 Non-pressure chronic ulcer of other part of left lower leg with fat layer exposed | CPT/HCPCS: 11042; 99212; 99213 ==

== ENCOUNTER → 2023-01-02 08:32 | Outpatient (CLI) | payer MEDICARE, SELFPAY | PROVIDERS: PCP Family Medicine; Referring Provider Radiology Radiation Oncology; Visit Provider Surgery | DX: L59.8 Other specified disorders of the skin and subcutaneous tissue related to radiation (principal); S81.802A Unspecified open wound, left lower leg, initial encounter; R60.0 Localized edema | CPT/HCPCS: 11042 ==

== ENCOUNTER → 2023-01-09 08:26 | Outpatient (CLI) | payer MEDICARE, SELFPAY | PROVIDERS: PCP Family Medicine; Referring Provider Radiology Radiation Oncology; Visit Provider Surgery | DX: L59.8 Other specified disorders of the skin and subcutaneous tissue related to radiation (principal); S81.802A Unspecified open wound, left lower leg, initial encounter; S80.812A Abrasion, left lower leg, initial encounter; R60.0 Localized edema; M79.605 Pain in left leg | CPT/HCPCS: 11042 ==

== ENCOUNTER → 2023-01-16 08:36 | Outpatient (CLI) | payer MEDICARE, SELFPAY | PROVIDERS: PCP Family Medicine; Referring Provider Radiology Radiation Oncology; Visit Provider Surgery | DX: L59.8 Other specified disorders of the skin and subcutaneous tissue related to radiation (principal); S81.802A Unspecified open wound, left lower leg, initial encounter; S80.812A Abrasion, left lower leg, initial encounter; R60.0 Localized edema | CPT/HCPCS: 11042 ==

== ENCOUNTER → 2023-01-30 08:41 | Outpatient (CLI) | payer MEDICARE, SELFPAY | PROVIDERS: PCP Family Medicine; Referring Provider Internal Medicine; Visit Provider Surgery | DX: L59.8 Other specified disorders of the skin and subcutaneous tissue related to radiation (principal); L97.822 Non-pressure chronic ulcer of other part of left lower leg with fat layer exposed; I87.2 Venous insufficiency (chronic) (peripheral) | CPT/HCPCS: 11042 ==

== ENCOUNTER → 2023-02-13 08:21 | Outpatient (CLI) | payer MEDICARE, SELFPAY | PROVIDERS: PCP Family Medicine; Referring Provider Radiology Radiation Oncology; Visit Provider Surgery | DX: L59.8 Other specified disorders of the skin and subcutaneous tissue related to radiation (principal); S81.802A Unspecified open wound, left lower leg, initial encounter; R60.0 Localized edema | CPT/HCPCS: 11042; 99212; 99213 ==

== ENCOUNTER → 2023-03-06 08:46 | Outpatient (CLI) | payer MEDICARE, SELFPAY | PROVIDERS: PCP Family Medicine; Referring Provider Radiology Radiation Oncology; Visit Provider Surgery | DX: L59.8 Other specified disorders of the skin and subcutaneous tissue related to radiation (principal); S81.802A Unspecified open wound, left lower leg, initial encounter; R60.0 Localized edema | CPT/HCPCS: 11042 ==

== ENCOUNTER → 2023-03-20 08:34 | Outpatient (CLI) | payer MEDICARE, SELFPAY | PROVIDERS: PCP Family Medicine; Referring Provider Radiology Radiation Oncology; Visit Provider Surgery | DX: L59.8 Other specified disorders of the skin and subcutaneous tissue related to radiation (principal); S81.802A Unspecified open wound, left lower leg, initial encounter; R60.0 Localized edema | CPT/HCPCS: 11042; 99213 ==

== ENCOUNTER → 2023-04-24 08:44 | Outpatient (CLI) | payer MEDICARE, SELFPAY | PROVIDERS: PCP Family Medicine; Referring Provider Radiology Radiation Oncology; Visit Provider Surgery | DX: L59.8 Other specified disorders of the skin and subcutaneous tissue related to radiation (principal); S81.802A Unspecified open wound, left lower leg, initial encounter; T81.89XA Other complications of procedures, not elsewhere classified, initial encounter; S81.801A Unspecified open wound, right lower leg, initial encounter; L98.8 Other specified disorders of the skin and subcutaneous tissue; R60.0 Localized edema | CPT/HCPCS: 11042; 99212; 99213 ==

== ENCOUNTER → 2023-05-08 08:47 | Outpatient (CLI) | payer MEDICARE, SELFPAY | PROVIDERS: PCP Family Medicine; Referring Provider Radiology Radiation Oncology; Visit Provider Surgery | DX: L59.8 Other specified disorders of the skin and subcutaneous tissue related to radiation (principal); S81.802A Unspecified open wound, left lower leg, initial encounter; S81.801A Unspecified open wound, right lower leg, initial encounter; T81.89XA Other complications of procedures, not elsewhere classified, initial encounter; R60.0 Localized edema; L98.8 Other specified disorders of the skin and subcutaneous tissue | CPT/HCPCS: 11042; 99213 ==

== ENCOUNTER → 2023-05-22 08:47 | Outpatient (CLI) | payer MEDICARE, SELFPAY | PROVIDERS: PCP Family Medicine; Referring Provider Radiology Radiation Oncology; Visit Provider Surgery | DX: S81.801A Unspecified open wound, right lower leg, initial encounter (principal); T81.89XA Other complications of procedures, not elsewhere classified, initial encounter | CPT/HCPCS: 11042; 99212; 99213 ==

== ENCOUNTER → 2023-06-05 08:34 | Outpatient (CLI) | payer MEDICARE, SELFPAY | PROVIDERS: PCP Family Medicine; Referring Provider Radiology Radiation Oncology; Visit Provider Surgery | DX: S81.801D Unspecified open wound, right lower leg, subsequent encounter (principal); L59.8 Other specified disorders of the skin and subcutaneous tissue related to radiation | CPT/HCPCS: 99212; 99213 ==

== ENCOUNTER → 2023-06-19 08:55 | Outpatient (CLI) | payer MEDICARE, SELFPAY | PROVIDERS: PCP Family Medicine; Referring Provider Radiology Radiation Oncology; Visit Provider Surgery | DX: L59.8 Other specified disorders of the skin and subcutaneous tissue related to radiation (principal); L97.822 Non-pressure chronic ulcer of other part of left lower leg with fat layer exposed; I10 Essential (primary) hypertension; E78.5 Hyperlipidemia, unspecified | CPT/HCPCS: 11042; 99212; 99213 ==

== ENCOUNTER → 2023-07-03 09:14 | Outpatient (CLI) | payer MEDICARE, SELFPAY | PROVIDERS: PCP Family Medicine; Referring Provider Radiology Radiation Oncology; Visit Provider Surgery | DX: L59.8 Other specified disorders of the skin and subcutaneous tissue related to radiation (principal); L97.822 Non-pressure chronic ulcer of other part of left lower leg with fat layer exposed; I87.2 Venous insufficiency (chronic) (peripheral) | CPT/HCPCS: 11042 ==

== ENCOUNTER → 2023-07-17 08:56 | Outpatient (CLI) | payer MEDICARE, SELFPAY | PROVIDERS: PCP Family Medicine; Referring Provider Radiology Radiation Oncology; Visit Provider Surgery | DX: L59.8 Other specified disorders of the skin and subcutaneous tissue related to radiation (principal); L97.822 Non-pressure chronic ulcer of other part of left lower leg with fat layer exposed; I87.2 Venous insufficiency (chronic) (peripheral) | CPT/HCPCS: 99213 ==

== ENCOUNTER → 2023-09-05 08:10 | Outpatient (CLI) | payer MEDICARE, SELFPAY | LOC: WC 08:31 | PROVIDERS: PCP Family Medicine; Referring Provider Dermatology MOHS-Micrographic Surgery; Visit Provider Surgery | DX: T81.89XA Other complications of procedures, not elsewhere classified, initial encounter (principal); S81.801A Unspecified open wound, right lower leg, initial encounter; I96 Gangrene, not elsewhere classified; I87.2 Venous insufficiency (chronic) (peripheral); I10 Essential (primary) hypertension; R60.0 Localized edema; L53.9 Erythematous condition, unspecified | CPT/HCPCS: 11042; 99213 ==

== ENCOUNTER → 2023-09-12 09:08 | Outpatient (CLI) | payer MEDICARE, SELFPAY ==
--- NOTE | 2023-09-12 | OV.WND_ITS ---
Progress Note Details Patient Name: Lidia Carey Patient Number: [id number] Clinician: Esme Alberto R.N. Patient Date of : 1940 Physician / Delicatessen Slicer: Dillon Quinteros Patient SUBJECTIVE Chief Complaint This information was obtained from the Patient. The wrap makes my skin too itchy, so I'm using paper tape instead. Allergies amlodipine (Severity: Severe, Reaction: itching, headache, pain in lower legs ), codeine (Severity: Severe, Reaction: shortness of breathe), doxycycline (Severity: Severe, Reaction: other reactions told not to take), gemfibrozil (Severity: Severe, Reaction: angioedema, face swelling, hallucinations), hydrochlorothiazide (Severity: Severe, Reaction: heavy arms, dry mouth, constipation, tingling in hands , feels like there is two of me.), meloxicam (Severity: Severe, Reaction: difficult breathing), penicillin (Severity: Severe, Reaction: SOB, rash, swelling), Hnuvjdr-Tzo-Wsz Reductase Inhibitors (Severity: Severe, Reaction: anaphylaxis, itching, rash, tongue swells, ), clindamycin (Severity: Severe, Reaction: tongue swelling, loss of voice), diphenhydramine (Severity: Severe, Reaction: swelling all over, feels like crap), Latex, Natural Rubber (Severity: Severe, Reaction: swelling, blisters all over where the tape is), Macrolide Antibiotics (Severity: Moderate, Reaction: itching), adhesive tape (Severity: Moderate, Reaction: other reactions), benzoin (Severity: Severe, Reaction: unknown), cyclobenzaprine (Severity: Severe, Reaction: muscle weakness, ), hydrocodone (Severity: Severe, Reaction: Was told not to take), influenza A (H1N1) (Severity: Severe, Reaction: NEEDS MODIFIED DOSE), salicylates (Severity: Severe, Reaction: stomach pain), tizanidine (Severity: Severe, Reaction: slept for 20 hrs ), acrylic acid (Severity: Severe, Reaction: UNKNOWN), aspirin (Severity: Moderate, Reaction: STOMACH PAIN, DROWSY), cephalexin (Severity: Severe, Reaction: rash, difficult breathing, was told not to take), cumin (Severity: Moderate, Reaction: unknown), cyclosporine (Severity: Moderate, Reaction: unknown), enoxaparin (Severity: Moderate, Reaction: itching all over), gluten (Severity: Moderate, Reaction: unknown), hydrocortisone (Severity: Moderate, Reaction: unknown), Iodine and Iodide Containing Products (Severity: Severe, Reaction: dermatitis), levofloxacin (Severity: Severe, Reaction: dermatitis , rash), meperidine (Severity: Moderate, Reaction: rash, sleepy), milk (Reaction: unkown), morphine (Severity: Severe, Reaction: difficulty breathing, rash was told not to take), tetracycline (Reaction: nausea and vomiting), tomato (Reaction: itching, sores in mouth), Vancomycin Analogues (Reaction: itchy, headache, ), Bactrim, Telfa non-stick pad (Reaction: skin irritation) HPI This information was obtained from the Patient. The following HPI elements were documented for the patient's wound: Location: [facility] Duration: 07/16/23, 08/27/23 Context: surgical Associated Signs and Symptoms: none The patient is an 83-year-old female who returns today for follow up of 2 separate surgical wounds on the right lower extremity that were the result of Moh's surgery for treatment of squamous cell carcinoma. The patient was seen for the 1st time last week and started on dressing changes with Promogran and saline moistened gauze. She reports that the wound on the posterior right lower extremity has been less painful. Since last visit the patient has developed periwound rash and itching. She has not noted any erythema, drainage, or fever. The patient reports a good appetite and denies Lidia Carey [id number] 1940 having any recent changes in her overall health. Past history is remarkable for ulcer left lower extremity in an area that was previously treated with radiation and was noted to be healed at her last visit on July 17, 2023 after a prolonged course of hyperbaric oxygen therapy and wound care. Treatment options have been limited due to her intolerance of a variety of wound care products and medications. The patient is not able to tolerate any form of compression. The only dressing that she has been able to tolerate in the past has been Promogran with saline moistened gauze. On exam today the more anterior wound is almost healed, posterior wound has some slough and biofilm. There is mild periwound rash. Medical History This information was obtained from the Patient. Patient has a medical history of: Hyperlipidemia Hypertension Osteoporosis Skin Cancer Uterine Cancer Additional Information Does patient have a history of Cancer? Yes? Complete all questions.: Yes Location of Cancer: Skin and Uterine List Treating Oncologist: Dr. Gonsalez (Dermatology) Patient underwent Radiation Treatment? If yes, answer question below.: Yes Date of Radiation Month/Year: Left calf. 10/2021 - Dr. Yadav ([place], [place]) Surgical History This information was obtained from the Patient. Patient has a surgical history of: Appendectomy- Bladder Suspension- Breast Lumpectomy- Eye Surgery- Hysterectomy- [facility]- Rotator Cuff Repair- (2011) Sacral Nerve Stimulator Placement- (2017) Splenectomy- Bilateral Leg Repair (Experimental)- (1979) Gall bladder removed- 04/30/2023 OBJECTIVE Vitals Height/Length: 58 in (147.32 cm), Weight: 148.8 lbs (67.64 kgs), BMI: 31.1, Temperature: 97.6 ?F (36.44 ?C), Pulse: 64 bpm, Respiratory Rate: 18 breaths/min, Blood Pressure: 170/65 mmHg, Pulse Oximetry: 95 %. Physical Exam Constitutional: Vital signs reviewed and noted. Well developed, well nourished, and in no acute distress. Alert and WallLidia [id number] 1940 oriented x3. Respiratory: Even respirations without use of accessory muscles. No intercoastal retractions noted. Even and non labored respiration. Integumentary (Hair, Skin): See wound assessment. mild periwound rash. Neurological: Sensation: Symmetric function by informal observation. Psychiatric: Orientation to time, place and person: Normal affect with normal thought pattern. Additional Information The patient's potential to heal is: fair. Wound Assessment(s) Wound #5 Right, Medial Leg - lower is a chronic Full Thickness Surgical Wound and has received a status of Not Healed. Initial wound encounter measurements are 1.2cm length x 1.3cm width x 0.1 cm depth, with an area of 1.56 sq cm and a volume of 0.156 cubic cm. Adipose is exposed. No tunneling has been noted. No sinus tract has been noted. No undermining has been noted. There is a Small amount of serosanguineous drainage noted which has no odor. The patient reports a wound pain of level 3/10. The wound margin is regular Wound bed has Yes, bright red, pink, firm, granulation, Yes slough, No eschar, No epithelialization. The periwound skin exhibited edema, maceration and erythema. The periwound skin did not exhibit brawny induration, excoriation, induration, callus, crepitus, fluctuance, rash, atrophie elsa, cyanosis, ecchymosis, hemosiderosis, pallor and rubor. The periwound skin was moist. The periwound skin was not friable and dry/scaly. The temperature of the periwound skin is WNL. Periwound skin does not exhibit signs or symptoms of infection. Local Pulse is Palpable. Additional Information Other devitalized tissue present: biofilm Limited to breakdown of skin: No Wound #6 Right, Posterior Leg - lower is an acute Full Thickness Surgical Wound and has received a status of Not Healed. Initial wound encounter measurements are 2.1cm length x 2cm width x 0.1 cm depth, with an area of 4.2 sq cm and a volume of 0.42 cubic cm. Adipose is exposed. No tunneling has been noted. No sinus tract has been noted. No undermining has been noted. There is a Moderate amount of serosanguineous drainage noted which has no odor. The patient reports a wound pain of level 8/10. The wound margin is irregular Wound bed has Yes, bright red, pink, firm, granulation, Yes slough, No eschar, No epithelialization. The periwound skin exhibited edema and erythema. The periwound skin did not exhibit brawny induration, excoriation, induration, callus, crepitus, fluctuance, rash, maceration, atrophie elsa, cyanosis, ecchymosis, hemosiderosis, pallor and rubor. The periwound skin was friable and moist. The periwound skin was not dry/scaly. The temperature of the periwound skin is WNL. Periwound skin does not exhibit signs or symptoms of infection. Local Pulse is Palpable. Additional Information Other devitalized tissue present: biofilm Limited to breakdown of skin: No ASSESSMENT Active Problems ICD-10 S81.801A - Unspecified open wound, right lower leg, initial encounter (Encounter Diagnosis) I87.2 - Venous insufficiency (chronic) (peripheral) (Encounter Diagnosis) S81.801D - Unspecified open wound, right lower leg, subsequent encounter Lidia Carey [id number] 1940 General Notes surgical wound medial right lower extremity almost healed surgical wound posterior right lower extremity with slough and biofilm, mild periwound rash The following factors have been identified that may impair wound healing: Devitalized tissue Suboptimal granulation tissue Bioburden Lower leg edema Reduced mobility Advanced age intolerance to variety of wound care products and medications Goals: Remove devitalized tissue in the wound that can inhibit wound healing. Disrupt, remove, and prevent reformation of biofilm in the wound that can inhibit wound healing. Manage comorbidities. Minimize LE edema. Prevent secondary infection. Wound closure. Plan: debridement, continue dressing changes with Promogran and saline moistened gauze, 1 time application of triamcinolone to kritsi wound rash, follow up in 1 week for a recheck. PROCEDURES Wound #5 Wound #5 (Surgical Wound) is located on the right, medial leg - lower. A skin/subcutaneous tissue level surgical debridement with a total area debrided of 1.56 sq cm. was performed by Dillon Quinteros MD. Subcutaneous was removed along with devitalized tissue: biofilm and slough. Pain control was achieved using EMLA lidocaine/prilocaine 2.5%/2.5%. A time out was not conducted prior to the start of the procedure. A minimal amount of bleeding was controlled with pressure. The procedure was tolerated well with a pain level of 0 throughout and a pain level of 0 following the procedure. Post Debridement Measurements: 1.2cm length x 1.3cm width x 0.2cm depth; with an area of 1.56 sq cm and a volume of 0.312 cubic cm. Additional Information Muscle fascia or bone removed and sent to pathology?: No Wound #6 Wound #6 (Surgical Wound) is located on the right, posterior leg - lower. A skin/subcutaneous tissue level surgical debridement with a total area debrided of 4.2 sq cm. was performed by Dillon Quinteros MD. Subcutaneous was removed along with devitalized tissue: biofilm and slough. Pain control was achieved using EMLA lidocaine/prilocaine 2.5%/2.5%. A time out was not conducted prior to the start of the procedure. A minimal amount of bleeding was controlled with pressure. The procedure was tolerated well with a pain level of 0 throughout and a pain level of 0 following the procedure. Post Debridement Measurements: 2.1cm length x 2cm width x 0.2cm depth; with an area of 4.2 sq cm and a volume of 0.84 cubic cm. Additional Information Muscle fascia or bone removed and sent to pathology?: No Lidia Carey [id number] 1940 PLAN Wound Orders: Wound #5 Right, Medial Leg - lower Anesthetic Topical Xylocaine to wound bed - Applied in clinic. Hygiene May shower with wound protected, using a cast protector or plastic bag and tape Cleanser Cleanse Wound with normal saline Topical Treatments Antibiotic/Antimicrobial Ointment/Cream - One time application of Triamcinolone cream to kristi-wound redness, applied in clinic today. Dressings Pack wound - Promogran moistened with normal saline or distilled water. Primary dressing - Moistened Normal Saline gauze. Cover and secure with - Paper tape. Change Dressing - Every other day. Wound #6 Right, Posterior Leg - lower Anesthetic Topical Xylocaine to wound bed - Applied in clinic. Hygiene May shower with wound protected, using a cast protector or plastic bag and tape Cleanser Cleanse Wound with normal saline Topical Treatments Antibiotic/Antimicrobial Ointment/Cream - One time application of Triamcinolone cream to kristi-wound redness, applied in clinic today. Dressings Pack wound - Promogran moistened with normal saline or distilled water. Primary dressing - Moistened Normal Saline gauze. Cover and secure with - paper tape. Change Dressing - Every other day. Additional Orders: Follow-Up Appointments Return Appointment - One week. Other information: If you develop fever, chills, increased pain, drainage, redness or swelling please call our office. If after hours, respond to the ER. Should you experience any significant changes in your wound(s) or have any questions regarding your home care instructions please contact the wound center @ [phone]. If after hours, contact your primary care physician or go to the hospital emergency room. Scribing Attestation I attest, as the nurse, that I scribed these orders for the physician. Plan of Care: 01. ENSURE/ESTABLISH OPTIMAL BLOOD FLOW : - Complete lower extremity assessment 02. ASSESS FOR/TREAT INFECTION : - Evaluate for signs and symptoms of infection and document findings. - Obtain culture and sensitivity (CandS) or tissue culture when infection is suspected. (NOTE:) Consider repeating when wound healing <40% after 30 days of wound care. 03. DEBRIDE WEEKLY OR MORE OFTEN PRN : - Evaluate patient in center weekly to assess wound bed and margins for need for debridement. - Debridement by any method to remove devitalized/necrotic tissue to promote healing and prevent further complications. Goal is to stimulate and/or maintain acute phase of wound healing by reducing bacterial burden and devitalized/non-viable tissue. CherryLidia Cat [id number] 1940 04. OPTIMIZE GLUCOSE CONTROL and NUTRITION : - Order/review pertinent labs to evaluate renal function, glucose control, and nutritional status. - Complete a nutrition risk assessment. 05. OFFLOADING PLAN : - Reviewed, not applicable 06. OPTIMIZE HOST FACTORS: - Assess and review patient history for wound etiology, co-morbid conditions, medication regime, and smoking history. - Assess lifestyle factors such as smoking, alcohol/drug abuse, eating habits/malnutrition and activity level. 07. DRESSING SELECTION : - Evaluate for dressing-related factors, such as availability, wear time, adaptability and use to better optimize wound healing and patient compliance. - Choose topical treatments and/or dressing based on wound type and appearance, periwound skin condition, wound size and depth, anatomic location, volume of exudate, edema in the lower extremities, and risk or presence of infection. 08. ADVANCED MODALITIES : - Evaluate for appropriateness of Cellular Tissue Product therapy. 09. FALL PREVENTION : - Complete fall assessment. - Inform patient and family of risk of falling and discuss prevention strategies. - Encourage Installation and use grab bars in bathrooms. 10. PAIN MANAGEMENT : - Complete pain assessment - Instruct the patient to call ???time-out??? if pain is too intense during procedure. 11. MEASURABLE GOALS for Wound Healing and/or Hyperbaric Oxygen Therapy : - Less Drainage - Decrease Inflammation - Decrease pain - Decrease Wound Dimensions - Wound Closure - Improve quality of life 12. DURATION/FREQUENCY of Wound Care Visits : - 1x weekly for 30 days Electronic Signature(s) Signed By: Date: Dillon Quinteros MD 10/14/2023 08:39:56 (PT) 09/12/2023 9:17:53 AM Version Electronically Date: Signed By: Dillon Quinteros MD 09/12/2023 15:40:26 (PT) Entered By: Daniela Murphy on 10/10/2023 10:15:15 (PT) Lidia Carey [id number] 1940
== END ==
LOC: WC 09:09
PROVIDERS: PCP Family Medicine; Referring Provider Dermatology MOHS-Micrographic Surgery; Visit Provider Surgery
DX: T81.89XA Other complications of procedures, not elsewhere classified, initial encounter (principal); S81.801A Unspecified open wound, right lower leg, initial encounter; L98.8 Other specified disorders of the skin and subcutaneous tissue; R60.0 Localized edema; L53.9 Erythematous condition, unspecified
CPT/HCPCS: 11042

== ENCOUNTER → 2023-09-19 09:15 | Outpatient (CLI) | payer MEDICARE, SELFPAY | LOC: WC 09:17 | PROVIDERS: PCP Family Medicine; Referring Provider Dermatology MOHS-Micrographic Surgery; Visit Provider Surgery | DX: T81.89XA Other complications of procedures, not elsewhere classified, initial encounter (principal); S81.801A Unspecified open wound, right lower leg, initial encounter; R60.0 Localized edema; L53.9 Erythematous condition, unspecified; L98.8 Other specified disorders of the skin and subcutaneous tissue | CPT/HCPCS: 97602; 99213 ==

== ENCOUNTER → 2023-09-26 08:49 | Outpatient (CLI) | payer MEDICARE, SELFPAY | LOC: WC 08:58 | PROVIDERS: PCP Family Medicine; Referring Provider Dermatology MOHS-Micrographic Surgery; Visit Provider Surgery | DX: T81.89XA Other complications of procedures, not elsewhere classified, initial encounter (principal); S81.801A Unspecified open wound, right lower leg, initial encounter; R60.0 Localized edema; L98.8 Other specified disorders of the skin and subcutaneous tissue; L53.9 Erythematous condition, unspecified; Z85.828 Personal history of other malignant neoplasm of skin | CPT/HCPCS: 11042 ==

== ENCOUNTER → 2023-10-03 08:57 | Outpatient (CLI) | payer MEDICARE, SELFPAY | LOC: WC 08:59 | PROVIDERS: PCP Family Medicine; Referring Provider Dermatology MOHS-Micrographic Surgery; Visit Provider Surgery | DX: T81.89XA Other complications of procedures, not elsewhere classified, initial encounter (principal); S81.801A Unspecified open wound, right lower leg, initial encounter; R60.0 Localized edema; L53.9 Erythematous condition, unspecified; L98.8 Other specified disorders of the skin and subcutaneous tissue; I87.2 Venous insufficiency (chronic) (peripheral); I10 Essential (primary) hypertension | CPT/HCPCS: 11042; 99212; 99213 ==

== ENCOUNTER → 2023-10-10 10:01 | Outpatient (CLI) | payer MEDICARE, SELFPAY | LOC: WC 10:03 | PROVIDERS: PCP Family Medicine; Referring Provider Physician Assistant; Visit Provider Nurse Practitioner Family | DX: T81.89XA Other complications of procedures, not elsewhere classified, initial encounter (principal); S81.801A Unspecified open wound, right lower leg, initial encounter; R60.0 Localized edema; L53.9 Erythematous condition, unspecified; L98.8 Other specified disorders of the skin and subcutaneous tissue | CPT/HCPCS: 11042; 99214 ==

== ENCOUNTER → 2023-10-17 08:48 | Outpatient (CLI) | payer MEDICARE, SELFPAY | LOC: WC 08:49 | PROVIDERS: PCP Family Medicine; Referring Provider Dermatology MOHS-Micrographic Surgery; Visit Provider Surgery | DX: S81.801A Unspecified open wound, right lower leg, initial encounter (principal); T81.89XA Other complications of procedures, not elsewhere classified, initial encounter; R60.0 Localized edema; L53.9 Erythematous condition, unspecified | CPT/HCPCS: 11042 ==

== ENCOUNTER → 2023-10-24 08:32 | Outpatient (CLI) | payer MEDICARE, SELFPAY | PROVIDERS: PCP Family Medicine; Referring Provider Dermatology MOHS-Micrographic Surgery; Visit Provider Surgery | DX: T81.89XD Other complications of procedures, not elsewhere classified, subsequent encounter (principal); S81.801D Unspecified open wound, right lower leg, subsequent encounter | CPT/HCPCS: 99212; 99213 ==